=== PATIENT | male | born 1955 | race Caucasian/White ===

== ENCOUNTER 2021-01-04 18:48 | Inpatient (IN) ==
[2021-01-04] MEDS ORDERED: Isovue-370 500 ML BOTTLE IVP ONE (19:07)
[2021-01-04 19:30] LABS: Basophils % 0.4 %; Hematocrit 29.5 % (37.5-50.1); Immature Granulocytes % 0.6 % (0-4); Lymphocytes # 0.9 K/mcL (0.6-4.6); Lymphocytes % 17.3 %; Mean Corpuscular HGB Conc 33.9 g/dL (31.6-35.5); Mean Corpuscular Hemoglobin 31.5 pg (28.0-33.3); Mean Corpuscular Volume 93.1 fL (83.0-100.0); Mean Platelet Volume 8.2 fL (9.4-12.4); Monocytes # 0.4 K/mcL (0.0-1.3); Monocytes % 8.6 %; Neutrophils # 3.6 K/mcL (1.6-8.9); Platelet Count 376 K/mcL (140-400); Red Blood Count 3.17 M/mcL (4.19-5.50); Red Cell Distribution Width 13.7 % (11.5-14.5); Segmented Neutrophils % 73.1 %; White Blood Count 4.9 K/mcL (4.3-11.1)
[2021-01-04 19:37] LABS: INR 1.2; Prothrombin Time 12.9 Seconds (9.4-12.1)
[2021-01-04 19:40] LABS: Activated Partial Thrombo Time 31.8 Seconds (26.0-36.0)
[2021-01-04 19:49] LABS: Alanine Aminotransferase 20 Units/L (7-52); Albumin 3.7 g/dL (3.5-5.7); Alkaline Phosphatase 50 Units/L (34-104); Aspartate Amino Transferase 53 Units/L (13-39); BUN/Creatinine Ratio 20 (6-26); Bilirubin,Indirect 0.3 mg/dL (0.0-1.0); Bilirubin,Total 0.3 mg/dL (0.3-1.0); Blood Urea Nitrogen 24 mg/dL (8-23); Calcium 8.5 mg/dL (8.6-10.3); Carbon Dioxide 21 mEq/L (23-29); Chloride 97 mEq/L (98-107); Ethanol < 10 mg/dL (Less than 10); Globulin 3.6 g/dL (2.4-3.5); Glucose 102 mg/dL (70-105); Osmolality,Calculated 272 (280-300); Potassium 5.4 mEq/L (3.5-5.1); Sodium 129 mEq/L (136-145); Total Protein 7.3 g/dL (6.4-8.9); eGFR For African Americans > 60 (> 60); eGFR For Non-African Americans 60 (> 60)
[2021-01-04 19:50] LABS: Troponin I 0.06 ng/mL (< 0.04)
[2021-01-04 20:35] LABS: Influenza A PCR Negative (Negative); Influenza B PCR Negative (Negative); Resp. Syncytial Virus PCR Negative (Negative)
[2021-01-04 20:37] LABS: SARS-CoV-2 by PCR (In House) Positive (Negative)
[2021-01-04] MEDS ORDERED: 0.9 % Sodium Chloride 1,000 ML IV ONE (20:56)
[2021-01-04] MEDS ORDERED: Naloxone 0.4 MG/ML INJ IVP PRN (21:00)
[2021-01-04] MEDS ORDERED: Melatonin 3 MG TABLET PO PRN (21:00)
[2021-01-04] MEDS ORDERED: *HR* Promethazine 25 MG/ML VIAL IM PRN (21:00)
[2021-01-04] MEDS ORDERED: *HR* Labetalol 20 MG/4 ML SYRINGE IVP PRN (21:03)
[2021-01-04] MEDS ORDERED: Insulin Human Regular 10 UNIT in 0.9 % Sodium Chloride 10 ML IV ONE (21:05)
[2021-01-04] MEDS ORDERED: *HR* Dextrose 50 % in Water (Syg) 50 ML SYRINGE IVP ONE (21:05)
[2021-01-04 21:07] LABS: Bilirubin,Urine Negative (Negative); Blood,Urine Large (Negative); Clarity,Urine Ex.Turbid (Clear); Color,Urine Yellow (Yellow); Glucose,Urine (UA) Normal (Normal); Ketones,Urine Negative (Negative); Leukocyte Esterase,Urine Large (Negative); Mucus,Urine Few per lpf (None-Few); Nitrite,Urine Positive (Negative); Protein,Urine 70 mg/dL (Neg-Trace); RBC,Urine 50-100 per hpf (0-3); Renal Epithelial Cells,Urine Few per hpf (None-Few); Specific Gravity,Urine 1.029 (1.010-1.025); Urobilinogen,Urine Normal (Normal); WBC,Urine TNTC per hpf (0-3)
[2021-01-04] MEDS ORDERED: Ondansetron 4 MG/2 ML VIAL IVP PRN (21:09)
[2021-01-04] MEDS ORDERED: Acetaminophen 325 MG TABLET PO PRN (21:09)
[2021-01-04] MEDS ORDERED: Bamlanivimab 700 MG, Etesevimab 1,400 MG in 0.9 % Sodium Chloride 100 ML IVPB ONE (21:09)
[2021-01-04] MEDS ORDERED: methylPREDNISolone 125 MG/2 ML VIAL IVP PRN (21:09)
[2021-01-04] MEDS ORDERED: EPINEPHrine 1 MG/ML VIAL IM PRN (21:09)
[2021-01-04 21:11] LABS: Amphetamine Screen,Urine Negative ng/mL (Cutoff=1000); Barbiturate Screen,Urine Negative ng/mL (Cutoff=200); Benzodiazepines Screen,Urine Negative ng/mL (Cutoff=200); Cannabinoid Screen,Urine Negative ng/mL (Cutoff = 50); Cocaine Screen,Urine Negative ng/mL (Cutoff= 300); Opiate Screen,Urine Negative ng/mL (Cutoff=300); Phencyclidine Screen,Urine Negative ng/mL (Cutoff=25)
[2021-01-04] MEDS ORDERED: [UNRECOGNIZED DRUG - OTHER] IVPB ONE (22:00)
[2021-01-04] MEDS: Piperacillin/Tazobactam 3.375 GM in 0.9 % Sodium Chloride Mini Bag 100 ML IVPB SCH (23:49)
[2021-01-05] MEDS: Piperacillin/Tazobactam 3.375 GM in 0.9 % Sodium Chloride Mini Bag 100 ML IVPB SCH ×2 (08:26→15:29)
[2021-01-05] MEDS: Aspirin 81 MG TAB.CHEW PO SCH (08:26)
[2021-01-05 08:59] LABS: Basophils % 0.3 %; Hematocrit 28.7 % (37.5-50.1); Hemoglobin 9.4 g/dL (12.9-16.9); Immature Granulocytes % 0.5 % (0-4); Lymphocytes % 15.8 %; Mean Corpuscular HGB Conc 32.8 g/dL (31.6-35.5); Mean Corpuscular Volume 94.7 fL (83.0-100.0); Mean Platelet Volume 8.4 fL (9.4-12.4); Monocytes # 0.5 K/mcL (0.0-1.3); Monocytes % 8.1 %; Neutrophils # 4.8 K/mcL (1.6-8.9); Platelet Count 340 K/mcL (140-400); Red Blood Count 3.03 M/mcL (4.19-5.50); Red Cell Distribution Width 14.3 % (11.5-14.5); Segmented Neutrophils % 75.3 %; White Blood Count 6.3 K/mcL (4.3-11.1)
[2021-01-05 09:06] LABS: INR 1.1; Prothrombin Time 12.5 Seconds (9.4-12.1)
[2021-01-05 09:16] LABS: Alanine Aminotransferase 18 Units/L (7-52); Albumin 3.6 g/dL (3.5-5.7); Albumin/Globulin Ratio 1.1 (1.1-2.2); Alkaline Phosphatase 47 Units/L (34-104); Aspartate Amino Transferase 48 Units/L (13-39); BUN/Creatinine Ratio 20 (6-26); Bilirubin,Total 0.3 mg/dL (0.3-1.0); Blood Urea Nitrogen 26 mg/dL (8-23); Calcium 8.5 mg/dL (8.6-10.3); Carbon Dioxide 21 mEq/L (23-29); Chloride 99 mEq/L (98-107); Chol/HDL Ratio 4.4 (0-4.9); Cholesterol 128 mg/dL (< 200); Globulin 3.2 g/dL (2.4-3.5); Glucose 87 mg/dL (70-105); HDL Cholesterol 29 mg/dL (40-59); LDL Cholesterol,Calculated 76 mg/dL (< 100); Magnesium 1.9 mg/dL (1.6-2.6); Osmolality,Calculated 276 (280-300); Phosphorous 4.4 mg/dL (2.7-4.5); Potassium 4.3 mEq/L (3.5-5.1); Sodium 131 mEq/L (136-145); Total Protein 6.8 g/dL (6.4-8.9); Triglycerides 117 mg/dL (< 150); eGFR For African Americans > 60 (> 60); eGFR For Non-African Americans 57 (> 60)
[2021-01-05] MEDS ORDERED: *HR* Propofol 200 MG/20 ML VIAL IVP ONE (11:44)
[2021-01-05] MEDS ORDERED: Lidocaine -MPF 2% 5 ML VIAL ONE (11:44)
[2021-01-05] MEDS: CarBAMazepine XR (12 hr) 100 MG TAB PO SCH (15:29)
[2021-01-05] MEDS: *HR* HYDROcodone/Acet 5/325 mg TABLET PO PRN (15:41)
[2021-01-05] MEDS: Acetaminophen 325 MG TABLET PO PRN (19:00)
[2021-01-05] MEDS: Gabapentin 300 MG CAPSULE PO SCH (21:46)
[2021-01-06] MEDS: CarBAMazepine XR (12 hr) 100 MG TAB PO SCH ×2 (00:58→12:48)
[2021-01-06] MEDS: Piperacillin/Tazobactam 3.375 GM in 0.9 % Sodium Chloride Mini Bag 100 ML IVPB SCH ×3 (00:58→15:51)
[2021-01-06 08:28] LABS: Basophils % 0.4 %; Hemoglobin 8.7 g/dL (12.9-16.9); Immature Granulocytes % 0.7 % (0-4); Lymphocytes # 0.7 K/mcL (0.6-4.6); Lymphocytes % 15.5 %; Mean Corpuscular HGB Conc 33.5 g/dL (31.6-35.5); Mean Corpuscular Hemoglobin 31.3 pg (28.0-33.3); Mean Corpuscular Volume 93.5 fL (83.0-100.0); Mean Platelet Volume 8.6 fL (9.4-12.4); Monocytes # 0.5 K/mcL (0.0-1.3); Monocytes % 10.4 %; Neutrophils # 3.3 K/mcL (1.6-8.9); Platelet Count 307 K/mcL (140-400); Red Blood Count 2.78 M/mcL (4.19-5.50); Red Cell Distribution Width 13.9 % (11.5-14.5); White Blood Count 4.5 K/mcL (4.3-11.1)
[2021-01-06 08:48] LABS: BUN/Creatinine Ratio 22 (6-26); Blood Urea Nitrogen 31 mg/dL (8-23); Calcium 8.1 mg/dL (8.6-10.3); Carbon Dioxide 22 mEq/L (23-29); Chloride 98 mEq/L (98-107); Glucose 88 mg/dL (70-105); Osmolality,Calculated 278 (280-300); Potassium 4.4 mEq/L (3.5-5.1); Sodium 131 mEq/L (136-145); eGFR For African Americans > 60 (> 60); eGFR For Non-African Americans 50 (> 60)
[2021-01-06] MEDS: lisinopriL 20 MG TABLET PO SCH (09:26)
[2021-01-06] MEDS: Aspirin 81 MG TAB.CHEW PO SCH (09:26)
[2021-01-06] MEDS: Gabapentin 300 MG CAPSULE PO SCH ×3 (09:26→22:01)
[2021-01-06] MEDS: *HR* HYDROcodone/Acet 5/325 mg TABLET PO PRN (10:07)
[2021-01-06] MEDS ORDERED: Vancomycin 0 MG in 0.9 % Sodium Chloride 250 ML IVPB SCH (13:00)
[2021-01-06] MEDS: 0.9 % Sodium Chloride 1,000 ML IVC SCH (13:41)
[2021-01-07] MEDS: Piperacillin/Tazobactam 3.375 GM in 0.9 % Sodium Chloride Mini Bag 100 ML IVPB SCH ×3 (00:10→15:20)
[2021-01-07] MEDS: 0.9 % Sodium Chloride 1,000 ML IVC SCH ×3 (00:11→21:34)
[2021-01-07] MEDS: CarBAMazepine XR (12 hr) 100 MG TAB PO SCH ×2 (00:11→15:20)
[2021-01-07] MEDS: Acetaminophen 325 MG TABLET PO PRN (00:11)
[2021-01-07 05:02] LABS: Basophils % 0.5 %; Hematocrit 23.2 % (37.5-50.1); Hemoglobin 7.7 g/dL (12.9-16.9); Immature Granulocytes % 0.8 % (0-4); Lymphocytes % 24.9 %; Mean Corpuscular HGB Conc 33.2 g/dL (31.6-35.5); Mean Corpuscular Hemoglobin 31.2 pg (28.0-33.3); Mean Corpuscular Volume 93.9 fL (83.0-100.0); Mean Platelet Volume 8.5 fL (9.4-12.4); Monocytes # 0.4 K/mcL (0.0-1.3); Monocytes % 11.5 %; Neutrophils # 2.4 K/mcL (1.6-8.9); Platelet Count 250 K/mcL (140-400); Red Blood Count 2.47 M/mcL (4.19-5.50); Red Cell Distribution Width 14.1 % (11.5-14.5); Segmented Neutrophils % 62.3 %; White Blood Count 3.8 K/mcL (4.3-11.1)
[2021-01-07 05:24] LABS: BUN/Creatinine Ratio 19 (6-26); Blood Urea Nitrogen 23 mg/dL (8-23); Calcium 7.8 mg/dL (8.6-10.3); Carbon Dioxide 23 mEq/L (23-29); Chloride 103 mEq/L (98-107); Glucose 121 mg/dL (70-105); Osmolality,Calculated 281 (280-300); Potassium 4.1 mEq/L (3.5-5.1); Sodium 133 mEq/L (136-145); eGFR For African Americans > 60 (> 60); eGFR For Non-African Americans > 60 (> 60)
[2021-01-07] MEDS: *HR* Enoxaparin 40 MG/0.4 ML SYRINGE SQ SCH (06:36)
[2021-01-07] MEDS: lisinopriL 20 MG TABLET PO SCH (09:19)
[2021-01-07] MEDS: Aspirin 81 MG TAB.CHEW PO SCH (09:20)
[2021-01-07] MEDS: Gabapentin 300 MG CAPSULE PO SCH ×3 (09:20→21:35)
[2021-01-07] MEDS: *HR* HYDROcodone/Acet 5/325 mg TABLET PO PRN (21:34)
[2021-01-08] MEDS: CarBAMazepine XR (12 hr) 100 MG TAB PO SCH ×2 (01:05→12:15)
[2021-01-08] MEDS: Piperacillin/Tazobactam 3.375 GM in 0.9 % Sodium Chloride Mini Bag 100 ML IVPB SCH ×2 (01:05→09:30)
[2021-01-08 05:50] LABS: Basophils % 0.3 %; Hematocrit 25.1 % (37.5-50.1); Hemoglobin 8.3 g/dL (12.9-16.9); Immature Granulocytes % 0.8 % (0-4); Lymphocytes # 0.9 K/mcL (0.6-4.6); Lymphocytes % 24.6 %; Mean Corpuscular HGB Conc 33.1 g/dL (31.6-35.5); Mean Corpuscular Hemoglobin 30.6 pg (28.0-33.3); Mean Corpuscular Volume 92.6 fL (83.0-100.0); Mean Platelet Volume 8.5 fL (9.4-12.4); Monocytes # 0.4 K/mcL (0.0-1.3); Monocytes % 10.9 %; Neutrophils # 2.3 K/mcL (1.6-8.9); Platelet Count 230 K/mcL (140-400); Red Blood Count 2.71 M/mcL (4.19-5.50); Segmented Neutrophils % 63.4 %; White Blood Count 3.7 K/mcL (4.3-11.1)
[2021-01-08 06:08] LABS: BUN/Creatinine Ratio 19 (6-26); Blood Urea Nitrogen 20 mg/dL (8-23); Calcium 7.8 mg/dL (8.6-10.3); Carbon Dioxide 21 mEq/L (23-29); Chloride 105 mEq/L (98-107); Glucose 102 mg/dL (70-105); Osmolality,Calculated 281 (280-300); Potassium 4.2 mEq/L (3.5-5.1); Sodium 134 mEq/L (136-145); eGFR For African Americans > 60 (> 60); eGFR For Non-African Americans > 60 (> 60)
[2021-01-08] MEDS: *HR* Enoxaparin 40 MG/0.4 ML SYRINGE SQ SCH (06:16)
[2021-01-08] MEDS: 0.9 % Sodium Chloride 1,000 ML IVC SCH ×2 (06:16→21:05)
[2021-01-08] MEDS: Aspirin 81 MG TAB.CHEW PO SCH (09:30)
[2021-01-08] MEDS: lisinopriL 20 MG TABLET PO SCH (09:30)
[2021-01-08] MEDS: Gabapentin 300 MG CAPSULE PO SCH ×3 (09:30→20:54)
[2021-01-08] MEDS: *HR* HYDROcodone/Acet 5/325 mg TABLET PO PRN (09:53)
[2021-01-08 10:13] LABS: Alanine Aminotransferase 27 Units/L (7-52); Albumin 2.9 g/dL (3.5-5.7); Albumin/Globulin Ratio 1.1 (1.1-2.2); Alkaline Phosphatase 50 Units/L (34-104); Aspartate Amino Transferase 87 Units/L (13-39); Bilirubin,Direct 0.1 mg/dL (0.0-0.2); Bilirubin,Indirect 0.2 mg/dL (0.0-1.0); Bilirubin,Total 0.3 mg/dL (0.3-1.0); Globulin 2.6 g/dL (2.4-3.5); Total Protein 5.5 g/dL (6.4-8.9)
[2021-01-08] MEDS ORDERED: Remdesivir 200 MG in 0.9 % Sodium Chloride 100 ML IVPB ONE (12:00)
[2021-01-08] MEDS: Thiamine (B-1) 250 MG in 0.9 % Sodium Chloride 100 ML IVPB SCH ×2 (15:38→20:55)
[2021-01-08] MEDS ORDERED: Cefepime HCl 2,000 MG in 0.9 % Sodium Chloride Mini Bag 100 ML IVPB SCH (16:00)
[2021-01-08] MEDS: Cefepime HCl 2,000 MG in 0.9 % Sodium Chloride Mini Bag 100 ML IVPB SCH (18:07)
[2021-01-08] MEDS: metroNIDAZOLE 500 MG TABLET PO SCH (20:53)
[2021-01-09] MEDS: CarBAMazepine XR (12 hr) 100 MG TAB PO SCH ×2 (00:17→12:21)
[2021-01-09 03:25] LABS: Alanine Aminotransferase 34 Units/L (7-52); Albumin 2.9 g/dL (3.5-5.7); Albumin/Globulin Ratio 1.1 (1.1-2.2); Alkaline Phosphatase 53 Units/L (34-104); Aspartate Amino Transferase 118 Units/L (13-39); BUN/Creatinine Ratio 19 (6-26); Bilirubin,Indirect 0.3 mg/dL (0.0-1.0); Bilirubin,Total 0.3 mg/dL (0.3-1.0); Blood Urea Nitrogen 16 mg/dL (8-23); Carbamazepine (Tegretol) 9 mcg/mL (4-12); Carbon Dioxide 20 mEq/L (23-29); Chloride 108 mEq/L (98-107); Globulin 2.6 g/dL (2.4-3.5); Glucose 95 mg/dL (70-105); Osmolality,Calculated 283 (280-300); Potassium 4.6 mEq/L (3.5-5.1); Sodium 136 mEq/L (136-145); Total Protein 5.5 g/dL (6.4-8.9); eGFR For African Americans > 60 (> 60); eGFR For Non-African Americans > 60 (> 60)
[2021-01-09 03:29] LABS: Thyroid Stimulating Hormone 2.383 mcIU/mL (0.340-5.600)
[2021-01-09 05:37] LABS: Basophils % 0.3 %; Hemoglobin 8.8 g/dL (12.9-16.9); Lymphocytes # 1.2 K/mcL (0.6-4.6); Lymphocytes % 30.4 %; Mean Corpuscular HGB Conc 32.6 g/dL (31.6-35.5); Mean Corpuscular Hemoglobin 30.8 pg (28.0-33.3); Mean Corpuscular Volume 94.4 fL (83.0-100.0); Mean Platelet Volume 8.7 fL (9.4-12.4); Monocytes # 0.5 K/mcL (0.0-1.3); Monocytes % 11.6 %; Neutrophils # 2.3 K/mcL (1.6-8.9); Platelet Count 251 K/mcL (140-400); Red Blood Count 2.86 M/mcL (4.19-5.50); Red Cell Distribution Width 14.2 % (11.5-14.5); Segmented Neutrophils % 56.7 %
[2021-01-09] MEDS: *HR* Enoxaparin 40 MG/0.4 ML SYRINGE SQ SCH (05:46)
[2021-01-09] MEDS: Cefepime HCl 2,000 MG in 0.9 % Sodium Chloride Mini Bag 100 ML IVPB SCH ×3 (05:46→21:57)
[2021-01-09] MEDS: 0.9 % Sodium Chloride 1,000 ML IVC SCH ×2 (09:58→09:59)
[2021-01-09] MEDS: Thiamine (B-1) 250 MG in 0.9 % Sodium Chloride 100 ML IVPB SCH ×3 (09:59→21:52)
[2021-01-09] MEDS: Aspirin 81 MG TAB.CHEW PO SCH (10:00)
[2021-01-09] MEDS: lisinopriL 20 MG TABLET PO SCH (10:00)
[2021-01-09] MEDS: metroNIDAZOLE 500 MG TABLET PO SCH ×2 (10:00→21:51)
[2021-01-09] MEDS: Gabapentin 300 MG CAPSULE PO SCH ×3 (10:00→21:51)
[2021-01-09] MEDS: Remdesivir 100 MG in 0.9 % Sodium Chloride 100 ML IVPB SCH (13:47)
[2021-01-10] MEDS: CarBAMazepine XR (12 hr) 100 MG TAB PO SCH ×2 (01:11→14:04)
[2021-01-10 03:26] LABS: Basophils % 0.2 %; Hematocrit 24.8 % (37.5-50.1); Hemoglobin 7.9 g/dL (12.9-16.9); Lymphocytes # 1.1 K/mcL (0.6-4.6); Lymphocytes % 26.5 %; Mean Corpuscular HGB Conc 31.9 g/dL (31.6-35.5); Mean Corpuscular Hemoglobin 30.3 pg (28.0-33.3); Monocytes # 0.4 K/mcL (0.0-1.3); Monocytes % 9.8 %; Neutrophils # 2.6 K/mcL (1.6-8.9); Platelet Count 289 K/mcL (140-400); Red Blood Count 2.61 M/mcL (4.19-5.50); Red Cell Distribution Width 14.4 % (11.5-14.5); Segmented Neutrophils % 62.5 %; White Blood Count 4.2 K/mcL (4.3-11.1)
[2021-01-10 03:31] LABS: Albumin 2.6 g/dL (3.5-5.7); Bilirubin,Direct 0.1 mg/dL (0.0-0.2); Bilirubin,Indirect 0.2 mg/dL (0.0-1.0); Bilirubin,Total 0.3 mg/dL (0.3-1.0); Globulin 2.6 g/dL (2.4-3.5); Total Protein 5.2 g/dL (6.4-8.9)
[2021-01-10 03:34] LABS: BUN/Creatinine Ratio 21 (6-26); Blood Urea Nitrogen 16 mg/dL (8-23); Calcium 7.9 mg/dL (8.6-10.3); Carbon Dioxide 21 mEq/L (23-29); Chloride 107 mEq/L (98-107); Glucose 87 mg/dL (70-105); Osmolality,Calculated 279 (280-300); Sodium 134 mEq/L (136-145); eGFR For African Americans > 60 (> 60); eGFR For Non-African Americans > 60 (> 60)
[2021-01-10] MEDS: Cefepime HCl 2,000 MG in 0.9 % Sodium Chloride Mini Bag 100 ML IVPB SCH ×3 (05:57→23:22)
[2021-01-10] MEDS: *HR* Enoxaparin 40 MG/0.4 ML SYRINGE SQ SCH (05:57)
[2021-01-10] MEDS: Gabapentin 300 MG CAPSULE PO SCH ×3 (08:35→22:02)
[2021-01-10] MEDS: Aspirin 81 MG TAB.CHEW PO SCH (08:35)
[2021-01-10] MEDS: metroNIDAZOLE 500 MG TABLET PO SCH ×2 (08:35→22:02)
[2021-01-10] MEDS: dexAMETHasone 4 MG TABLET PO SCH (08:35)
[2021-01-10] MEDS: lisinopriL 20 MG TABLET PO SCH (08:35)
[2021-01-10] MEDS: Thiamine (B-1) 250 MG in 0.9 % Sodium Chloride 100 ML IVPB SCH ×3 (08:46→22:02)
[2021-01-10] MEDS: Remdesivir 100 MG in 0.9 % Sodium Chloride 100 ML IVPB SCH (14:01)
[2021-01-10] MEDS: *HR* HYDROcodone/Acet 5/325 mg TABLET PO PRN (23:24)
[2021-01-11] MEDS: CarBAMazepine XR (12 hr) 100 MG TAB PO SCH ×2 (00:46→14:08)
[2021-01-11] MEDS: *HR* Enoxaparin 40 MG/0.4 ML SYRINGE SQ SCH (05:22)
[2021-01-11] MEDS: Cefepime HCl 2,000 MG in 0.9 % Sodium Chloride Mini Bag 100 ML IVPB SCH ×3 (05:22→21:24)
[2021-01-11] MEDS: *HR* HYDROcodone/Acet 5/325 mg TABLET PO PRN ×2 (05:23→21:23)
[2021-01-11 06:52] LABS: Basophils % 0.4 %; Hemoglobin 8.5 g/dL (12.9-16.9); Immature Granulocytes % 0.9 % (0-4); Lymphocytes # 0.8 K/mcL (0.6-4.6); Lymphocytes % 13.7 %; Mean Corpuscular Hemoglobin 31.3 pg (28.0-33.3); Mean Corpuscular Volume 91.9 fL (83.0-100.0); Monocytes # 0.5 K/mcL (0.0-1.3); Monocytes % 9.2 %; Neutrophils # 4.3 K/mcL (1.6-8.9); Platelet Count 312 K/mcL (140-400); Red Blood Count 2.72 M/mcL (4.19-5.50); Red Cell Distribution Width 14.2 % (11.5-14.5); Segmented Neutrophils % 75.8 %; White Blood Count 5.6 K/mcL (4.3-11.1)
[2021-01-11 07:06] LABS: Alanine Aminotransferase 28 Units/L (7-52); Albumin 2.8 g/dL (3.5-5.7); Albumin/Globulin Ratio 1.1 (1.1-2.2); Alkaline Phosphatase 63 Units/L (34-104); Aspartate Amino Transferase 76 Units/L (13-39); BUN/Creatinine Ratio 27 (6-26); Bilirubin,Direct 0.1 mg/dL (0.0-0.2); Bilirubin,Indirect 0.3 mg/dL (0.0-1.0); Bilirubin,Total 0.4 mg/dL (0.3-1.0); Blood Urea Nitrogen 18 mg/dL (8-23); Calcium 7.7 mg/dL (8.6-10.3); Carbon Dioxide 20 mEq/L (23-29); Chloride 104 mEq/L (98-107); Globulin 2.5 g/dL (2.4-3.5); Glucose 91 mg/dL (70-105); Osmolality,Calculated 275 (280-300); Potassium 3.7 mEq/L (3.5-5.1); Sodium 132 mEq/L (136-145); Total Protein 5.3 g/dL (6.4-8.9); eGFR For African Americans > 60 (> 60); eGFR For Non-African Americans > 60 (> 60)
[2021-01-11] MEDS: Thiamine (B-1) 250 MG in 0.9 % Sodium Chloride 100 ML IVPB SCH ×2 (08:52→15:43)
[2021-01-11] MEDS: lisinopriL 20 MG TABLET PO SCH (08:52)
[2021-01-11] MEDS: metroNIDAZOLE 500 MG TABLET PO SCH ×2 (08:52→21:23)
[2021-01-11] MEDS: Gabapentin 300 MG CAPSULE PO SCH ×3 (08:52→21:23)
[2021-01-11] MEDS: Aspirin 81 MG TAB.CHEW PO SCH (08:52)
[2021-01-11] MEDS: dexAMETHasone 4 MG TABLET PO SCH (08:52)
[2021-01-11] MEDS: Remdesivir 100 MG in 0.9 % Sodium Chloride 100 ML IVPB SCH (13:55)
[2021-01-12] MEDS: CarBAMazepine XR (12 hr) 100 MG TAB PO SCH ×3 (01:13→15:18)
[2021-01-12] MEDS: Cefepime HCl 2,000 MG in 0.9 % Sodium Chloride Mini Bag 100 ML IVPB SCH ×3 (04:42→21:27)
[2021-01-12] MEDS: *HR* Enoxaparin 40 MG/0.4 ML SYRINGE SQ SCH (04:43)
[2021-01-12] MEDS: *HR* HYDROcodone/Acet 5/325 mg TABLET PO PRN (04:44)
[2021-01-12] MEDS: Thiamine (B-1) 100 MG TABLET PO SCH ×2 (09:48→16:31)
[2021-01-12] MEDS: Gabapentin 300 MG CAPSULE PO SCH ×4 (09:49→21:16)
[2021-01-12] MEDS: lisinopriL 20 MG TABLET PO SCH ×2 (09:49→16:31)
[2021-01-12] MEDS: metroNIDAZOLE 500 MG TABLET PO SCH ×3 (09:49→21:16)
[2021-01-12] MEDS: Aspirin 81 MG TAB.CHEW PO SCH ×2 (09:49→16:32)
[2021-01-12] MEDS: dexAMETHasone 4 MG TABLET PO SCH ×2 (09:49→16:32)
[2021-01-12] MEDS: Remdesivir 100 MG in 0.9 % Sodium Chloride 100 ML IVPB SCH (12:34)
[2021-01-13] MEDS: CarBAMazepine XR (12 hr) 100 MG TAB PO SCH ×2 (01:04→18:50)
[2021-01-13] MEDS: Cefepime HCl 2,000 MG in 0.9 % Sodium Chloride Mini Bag 100 ML IVPB SCH ×2 (05:13→21:24)
[2021-01-13] MEDS: *HR* Enoxaparin 40 MG/0.4 ML SYRINGE SQ SCH (05:14)
[2021-01-13 06:27] LABS: Basophils % 0.3 %; Eosinophils % 0.1 %; Hematocrit 24.1 % (37.5-50.1); Hemoglobin 8.3 g/dL (12.9-16.9); Immature Granulocytes % 0.8 % (0-4); Lymphocytes # 0.7 K/mcL (0.6-4.6); Mean Corpuscular HGB Conc 34.4 g/dL (31.6-35.5); Mean Corpuscular Hemoglobin 31.4 pg (28.0-33.3); Mean Corpuscular Volume 91.3 fL (83.0-100.0); Mean Platelet Volume 9.3 fL (9.4-12.4); Monocytes # 0.5 K/mcL (0.0-1.3); Monocytes % 6.2 %; Neutrophils # 6.1 K/mcL (1.6-8.9); Platelet Count 348 K/mcL (140-400); Red Blood Count 2.64 M/mcL (4.19-5.50); Red Cell Distribution Width 14.5 % (11.5-14.5); Segmented Neutrophils % 83.6 %; White Blood Count 7.3 K/mcL (4.3-11.1)
[2021-01-13 06:48] LABS: Alanine Aminotransferase 22 Units/L (7-52); Albumin 2.8 g/dL (3.5-5.7); Alkaline Phosphatase 62 Units/L (34-104); Aspartate Amino Transferase 47 Units/L (13-39); BUN/Creatinine Ratio 26 (6-26); Bilirubin,Direct 0.1 mg/dL (0.0-0.2); Bilirubin,Indirect 0.3 mg/dL (0.0-1.0); Bilirubin,Total 0.4 mg/dL (0.3-1.0); Blood Urea Nitrogen 19 mg/dL (8-23); Calcium 7.9 mg/dL (8.6-10.3); Carbon Dioxide 20 mEq/L (23-29); Chloride 110 mEq/L (98-107); Globulin 2.8 g/dL (2.4-3.5); Glucose 98 mg/dL (70-105); Osmolality,Calculated 286 (280-300); Potassium 3.4 mEq/L (3.5-5.1); Sodium 137 mEq/L (136-145); Total Protein 5.6 g/dL (6.4-8.9); eGFR For African Americans > 60 (> 60); eGFR For Non-African Americans > 60 (> 60)
[2021-01-13] MEDS: Gabapentin 300 MG CAPSULE PO SCH ×3 (08:01→19:48)
[2021-01-13] MEDS: metroNIDAZOLE 500 MG TABLET PO SCH (08:01)
[2021-01-13] MEDS: lisinopriL 20 MG TABLET PO SCH (08:01)
[2021-01-13] MEDS: dexAMETHasone 4 MG TABLET PO SCH (08:01)
[2021-01-13] MEDS: Aspirin 81 MG TAB.CHEW PO SCH (08:01)
[2021-01-13] MEDS: Thiamine (B-1) 100 MG TABLET PO SCH (08:01)
[2021-01-13] MEDS: *HR* HYDROcodone/Acet 5/325 mg TABLET PO PRN (09:57)
[2021-01-13] MEDS ORDERED: *HR* LORazepam 2 MG/ML VIAL IVP PRN (10:46)
[2021-01-13] MEDS ORDERED: Morphine Sulfate 2 MG/ML SYRINGE IVP PRN (14:43)
[2021-01-13] MEDS: Haloperidol Oral Conc 10 MG/5 ML UDC PO SCH ×3 (18:49→19:43)
[2021-01-13] MEDS: Ringers Solution, Lactated 1,000 ML IVC SCH (18:51)
[2021-01-14] MEDS: CarBAMazepine XR (12 hr) 100 MG TAB PO SCH ×2 (01:10→01:38)
[2021-01-14 03:46] VITALS: TEMP 98.3; O2SAT 91
[2021-01-14] MEDS: *HR* Enoxaparin 40 MG/0.4 ML SYRINGE SQ SCH (04:57)
[2021-01-14] MEDS: Cefepime HCl 2,000 MG in 0.9 % Sodium Chloride Mini Bag 100 ML IVPB SCH ×2 (04:57→14:29)
[2021-01-14] MEDS: Ringers Solution, Lactated 1,000 ML IVC SCH (05:14)
[2021-01-14 07:26] VITALS: PULSE 89
[2021-01-14 07:27] VITALS: BP 141/72
[2021-01-14 07:32] LABS: Basophils % 0.1 %; Eosinophils % 0.3 %; Hematocrit 23.2 % (37.5-50.1); Hemoglobin 7.7 g/dL (12.9-16.9); Immature Granulocytes % 0.5 % (0-4); Lymphocytes # 0.5 K/mcL (0.6-4.6); Lymphocytes % 4.9 %; Mean Corpuscular HGB Conc 33.2 g/dL (31.6-35.5); Mean Corpuscular Hemoglobin 30.9 pg (28.0-33.3); Mean Corpuscular Volume 93.2 fL (83.0-100.0); Mean Platelet Volume 9.1 fL (9.4-12.4); Monocytes # 0.5 K/mcL (0.0-1.3); Monocytes % 4.9 %; Neutrophils # 8.4 K/mcL (1.6-8.9); Platelet Count 329 K/mcL (140-400); Red Blood Count 2.49 M/mcL (4.19-5.50); Red Cell Distribution Width 14.5 % (11.5-14.5); Segmented Neutrophils % 89.3 %; White Blood Count 9.4 K/mcL (4.3-11.1)
[2021-01-14 07:50] LABS: BUN/Creatinine Ratio 27 (6-26); Blood Urea Nitrogen 17 mg/dL (8-23); Calcium 7.8 mg/dL (8.6-10.3); Carbon Dioxide 22 mEq/L (23-29); Chloride 109 mEq/L (98-107); Glucose 113 mg/dL (70-105); Osmolality,Calculated 288 (280-300); Potassium 2.9 mEq/L (3.5-5.1); Sodium 138 mEq/L (136-145); eGFR For African Americans > 60 (> 60); eGFR For Non-African Americans > 60 (> 60)
[2021-01-14] MEDS: lisinopriL 20 MG TABLET PO SCH (11:50)
[2021-01-14] MEDS: Aspirin 81 MG TAB.CHEW PO SCH (11:50)
[2021-01-14] MEDS: Gabapentin 300 MG CAPSULE PO SCH ×2 (11:50→16:15)
[2021-01-14] MEDS: Haloperidol Oral Conc 10 MG/5 ML UDC PO SCH ×2 (11:50→16:15)
[2021-01-14] MEDS: Thiamine (B-1) 100 MG TABLET PO SCH (11:50)
[2021-01-14] MEDS ORDERED: Morphine Sulfate Oral CONC 10 MG/0.5 ML ORAL.SYG SL SCH (12:00)
== END 2021-01-14 17:22 | disposition hospice, home (50) | DRG 951 ==
LOC: 3ANU 18:48 → EMEROOARM 18:48 → SUATTDRO 21:03 → 3ANU 22:02 → SUATTDRO 01-05 17:31
PROVIDERS: ADMIT Internal Medicine; ATTEND Student in an Organized Health Care Education/Training Program